=== PATIENT | male | born 1950 | race Caucasian/White ===

== ENCOUNTER → 2016-02-15 | Day surgery (SDC) | payer MEDICARE, MEDICAID ==
[~2016-02-15] VITALS: Ht 175.3 cm; Wt 122.5 kg
[~2016-02-15] MED LIST: /ACETCOD2T PO; /LOR25TA PO; ALBU17IN2 INH; ASPI325T PO; ATEN100T PO; ATOR1TAB18 PO; Albuterol HFA INH; BUPIVACAINE HCL 0.25% 30 ML VIAL As Ordered ONE; CITA40TA PO; CYMB1CAP PO; DULO1CAP2 PO; FURO1TAB15 PO; FURO40TA2 PO; GLYCOPYRROLATE INJ 0.2 MG/ML 2 ML VIAL As Ordered ONE; HYDR-3716 PO; LIDOCAINE 2% INJ 100 MG/5 ML SDV (FOR ANES.) As Ordered ONE; LIPI80TA PO; LR 1,000 ML IV SCH; MEPERIDINE INJ 25 MG/ML VIAL (J2175) IV PRN; METOCLOPRAMIDE INJ 10MG/2ML VIAL (J2765) IV PRN; MIDAZOLAM INJ 2 MG/2 ML VIAL (J2250) As Ordered ONE; MIRA33504 PO; NEOSTIGMINE 1MG/ML 5 ML SYRINGE (J2710) As Ordered ONE; NITR0.6S SL; NITR4TASL SL; NORCO, ANEXSIA 5/325MG TABLET (HYDROcodone/ACETAMINOPHEN) PO PRN; OMEP20CA3 PO; OMEP40CA2 PO; ONDANSETRON 4MG/2ML VIAL (J2405) As Ordered ONE; ONDANSETRON 4MG/2ML VIAL (J2405) IV PRN; PERC5TAB PO; PERCOCET 5MG/325MG TAB As Ordered ONE; PERCOCET PO; POTA10CA PO; POTA20PO4 PO; RAMI5CA PO; RAMI5CAP PO; ROCURONIUM BROMIDE 50 MG/5 ML VIAL As Ordered ONE; SPIR1CAP INH; SUCR1TA PO; TOPI200T4 PO; VITA400T15 PO; Vitamin D2 PO; ZOLP-189 PO; ZOLP10TA2 PO; fentaNYL 250 MCG/5 ML INJECTION (J3010) As Ordered ONE
[2016-02-15] MEDS: PERCOCET 5MG/325MG TAB PO PRN ×2 (16:15→16:40)
[2016-02-15 19:57] VITALS: BP 123/62
--- NOTE | 2016-02-17 06:38 | RO ---
DATE OF PROCEDURE: 02/15/2016 PREOPERATIVE DIAGNOSIS: Recurrent ventral incisional hernia. POSTOPERATIVE DIAGNOSIS: Recurrent ventral incisional hernia. PROCEDURE PERFORMED: Laparoscopic repair of recurrent ventral incisional hernia with 12 cm Parietex patch, reference # [id number]. SURGEON: Dr. Mayo Rendon ANESTHESIA: General. INDICATIONS FOR THE PROCEDURE: The patient is a 65-year-old man who had developed a small hernia at the site of a trocar from a previous cholecystectomy. Approximately 3 years ago, he had undergone a laparoscopic repair using PhysioMesh patch. He has subsequently noted a small bulge just above his prior incision. Examination confirmed a small hernia and he is now for a laparoscopic repair. OPERATIVE PROCEDURE: The patient was placed supine on the operating table. He was placed under general endotracheal anesthesia. The patient's abdomen was prepped and draped in a sterile fashion. 0.25% Marcaine was infiltrated at a point in the right lateral abdomen at the level of the umbilicus. A short incision was made and a Veress needle was inserted in the abdomen was inflated with carbon dioxide gas. A 5 mm port was placed over the scope and this was advanced through the abdominal wall without difficulty. Initial examination showed some fairly extensive adhesions of the omentum to the anterior abdominal wall beneath his previous hernia scar which was just above the umbilicus. The abdomen was otherwise devoid of adhesions. I did note that a portion of the transverse colon was being elevated by the attachments of the attached omentum to the anterior abdominal wall, but the bowel itself did not appear to come in contact with the abdominal wall. The new hernia was not at this point identified. A second 5 mm trocar was placed in the right upper quadrant. Using the harmonic scalpel, the adhesions of the omentum to the anterior abdominal wall were lysed. In several areas, it appeared that there were portions of the previously placed mesh that were more adherent to the omentum than to the abdominal wall and that these were elevated away from the abdominal wall using the harmonic scalpel. Dissection proceeded from the right side across the midline to remove all of the adhesions from the anterior abdominal wall. Once the adhesions had all been completely freed, the new hernia defect was identified just above the level of the adhesions. There were a few fragments of the previously placed mesh adherent to the abdominal wall just inferior to this hernia defect. There was no evidence of recurrence at the previous hernia site. The new defect appeared to be approximately 1-1/2 to 2 cm in size. This was fairly close to the falciform ligament. Therefore, the harmonic scalpel was used to peel the falciform ligament and the preperitoneal fat in this area off of the anterior abdominal wall down to the underlying fascia to allow any new mesh to adhere more directly. Once this area had been cleared at least an additional 5-7 cm superiorly, the abdomen was deflated and the scope was removed. A small incision was made through the upper aspect of his old scar extending up over the new palpable hernia. The incision was deepened into the subcutaneous tissues. A hernia sac approximately 4 cm in size was identified and this was dissected free from surrounding subcutaneous fat. It was transected at the fascial level and removed and sent as a specimen. The fascial defect was approximately 1-1/2 cm in size. The subcutaneous tissues were elevated off of the fascia for 1-2 cm on all sides of this defect. I selected a 12 cm round Parietex patch to place over this defect. This was to provide a broad overlap on all sides and also to extend down over his previous repair to provide some reinforcement of an area that had previously been patched. The patch was first hydrated. Single #0 Ethibond suture was then placed. A bite of the inferior edge of the fascial defect was taken followed by a small bite in the center of the new piece of mesh followed by a bite of the superior edge of the fascial defect. The mesh was then folded and inserted into the abdomen. The Ethibond suture was then tied down, fixing the center of the mesh over the fascial closure. Two additional #0 Ethibond sutures were placed to complete the closure of the hernia defect. The abdomen was then reinflated. A SecureStrap tacking device was inserted. The abdominal pressure was decreased to 10 mmHg. Initially, the left side of the mesh was tacked down to the anterior abdominal wall. Once the left side was fairly well-fixed, the right side was also tacked in place. The first 25 tack route driver was used to tack down the edges of the mesh and hold it securely in place. A second tacker of 25 tacks was then used to fix the mesh more securely through the central portions and around the periphery. There was a small amount of bleeding, but this ceased spontaneously. Final inspection revealed no evidence of bleeding. The mesh appeared to be well applied. The abdomen was then deflated and the remaining trocars were removed. The trocar site incisions were closed with buried #5-0 Vicryl. The midline incision was infiltrated with some additional 0.25% Marcaine. The subcutaneous tissues were closed with several buried sutures of #0 Vicryl. The skin edges were approximated with a running subcuticular #5-0 Vicryl and Steri-Strips. Light dressings were applied. The patient tolerated the procedure well without apparent complication. He was awakened in the operating room, extubated and moved to the recovery room in stable condition.
== END | disposition home or self-care (01) ==
LOC: M SDC 13:02
PROVIDERS: ATTEND Surgery
DX: K43.2 Incisional hernia without obstruction or gangrene (principal); K43.9 Ventral hernia without obstruction or gangrene; I10 Essential (primary) hypertension; E78.00 Pure hypercholesterolemia, unspecified; G47.33 Obstructive sleep apnea (adult) (pediatric); I25.10 Atherosclerotic heart disease of native coronary artery without angina pectoris; K44.9 Diaphragmatic hernia without obstruction or gangrene; K21.9 Gastro-esophageal reflux disease without esophagitis; R29.898 Other symptoms and signs involving the musculoskeletal system; R06.83 Snoring; M12.9 Arthropathy, unspecified; M54.2 Cervicalgia; F41.9 Anxiety disorder, unspecified; F32.9 Major depressive disorder, single episode, unspecified; R51 Headache; J44.9 Chronic obstructive pulmonary disease, unspecified; E11.9 Type 2 diabetes mellitus without complications; E66.9 Obesity, unspecified; E78.5 Hyperlipidemia, unspecified; R10.9 Unspecified abdominal pain; E55.9 Vitamin D deficiency, unspecified; N52.9 Male erectile dysfunction, unspecified; R25.1 Tremor, unspecified; Z88.1 Allergy status to other antibiotic agents; Z87.891 Personal history of nicotine dependence; Z79.899 Other long term (current) drug therapy; Z79.82 Long term (current) use of aspirin; Z95.5 Presence of coronary angioplasty implant and graft
CPT/HCPCS: 49654; 88302; C1781; J2250; J2405; J2710; J3010

== ENCOUNTER → 2016-03-16 | Outpatient (CLI) | payer MEDICARE, MEDICAID ==
[~2016-03-16] MED LIST changes: -BUPIVACAINE HCL 0.25% 30 ML VIAL As Ordered ONE; -GLYCOPYRROLATE INJ 0.2 MG/ML 2 ML VIAL As Ordered ONE; -LIDOCAINE 2% INJ 100 MG/5 ML SDV (FOR ANES.) As Ordered ONE; -LR 1,000 ML IV SCH; -MEPERIDINE INJ 25 MG/ML VIAL (J2175) IV PRN; -METOCLOPRAMIDE INJ 10MG/2ML VIAL (J2765) IV PRN; -MIDAZOLAM INJ 2 MG/2 ML VIAL (J2250) As Ordered ONE; -NEOSTIGMINE 1MG/ML 5 ML SYRINGE (J2710) As Ordered ONE; -NORCO, ANEXSIA 5/325MG TABLET (HYDROcodone/ACETAMINOPHEN) PO PRN; -ONDANSETRON 4MG/2ML VIAL (J2405) As Ordered ONE; -ONDANSETRON 4MG/2ML VIAL (J2405) IV PRN; -PERCOCET 5MG/325MG TAB As Ordered ONE; -ROCURONIUM BROMIDE 50 MG/5 ML VIAL As Ordered ONE; -fentaNYL 250 MCG/5 ML INJECTION (J3010) As Ordered ONE
--- NOTE | 2016-03-16 15:33 | REP ---
Low-dose lung cancer screening chest CT without contrast: History: Lung cancer screening. Comparison chest CT study is from August 05, 2015 done at [facility]. The patient had a spiculated lesion in the right middle lobe. In September 2015 he underwent wedge resection of the right middle lobe. 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 CT findings: There are postoperative changes in the right hemithorax. There is a stable oval shaped noncalcified pulmonary nodule 7 mm in diameter in the left lung lingular distribution, unchanged from comparison study August 05, 2015. This is a stable finding from July 25, 2013 prior study. No other pulmonary nodule is seen. There are old ununited upper thoracic rib fractures and old post-traumatic changes are seen anteriorly in the chest bilaterally. Impression: No significant pulmonary nodule seen. Post thoracotomy changes. Signed by Sridhar Frnaklin MD 03/16/2016 04:34 P
== END ==
LOC: M RAD 14:45
PROVIDERS: ATTEND Physician Assistant Medical
DX: Z87.891 Personal history of nicotine dependence (principal)

== ENCOUNTER → 2016-03-28 | Outpatient (CLI) | payer MEDICARE, MEDICAID ==
[~2016-03-28] MED LIST changes: +GASTROGRAFIN SOLUTION 30ML (Q9963) As Ordered ONE; +ISOVUE-370 76% 100ML VIAL (Q9967) As Ordered ONE
--- NOTE | 2016-03-28 15:08 | REP ---
Clinical: Left lower quadrant pain. Technique: Axial contrast enhanced images from the lung bases to the pubic symphysis using oral and 100 ml Isovue 370 intravenous contrast material precontrast images of the abdomen and coronal/sagittal re-formations. Comparison: 06/02/2015, 03/08/2013. Findings: The lung singh clear. Visualized portions of the heart and pericardium normal. Liver, spleen, and bilateral adrenal glands are normal. Pancreatic calcifications consistent with chronic pancreatitis. Evidence for prior cholecystectomy. Kidneys demonstrate bilateral cysts measuring 3.5 cm on the right and 5.8 cm on the left. 2 mm nonobstructing left renal calculus identified without hydronephrosis. The enteric system is without obstruction or acute inflammatory process. Pelvis demonstrates normal bladder and age appropriate prostate/seminal vesicles. No pelvic fluid or ascites. No intraperitoneal or retroperitoneal adenopathy. No free air. Atherosclerotic changes to the aorta and vasculature without aneurysm or dissection. Musculoskeletal structures demonstrate degenerative changes without focal osseous abnormality. Impression: 1. Evidence of prior cholecystectomy and chronic pancreatitis. 2. 2 mm nonobstructing left renal calculus and bilateral simple cysts measuring up to 5.8 cm. 3. No free fluid. No acute intra-abdominal or pelvic pathology appreciated. Signed by Roney Pederson MD 03/28/2016 02:59 P
== END ==
LOC: M RAD 12:27
PROVIDERS: ATTEND Internal Medicine Gastroenterology
DX: R10.32 Left lower quadrant pain (principal); K59.00 Constipation, unspecified
CPT/HCPCS: 74178; Q9963; Q9967

== ENCOUNTER → 2016-03-31 | Outpatient (CLI) | payer MEDICARE, MEDICAID ==
[~2016-03-31] MED LIST changes: -GASTROGRAFIN SOLUTION 30ML (Q9963) As Ordered ONE; -ISOVUE-370 76% 100ML VIAL (Q9967) As Ordered ONE
[2016-03-31 14:41] LABS: BLOOD UREA NITROGEN 12 MG/DL (7-18); CREATININE FOR GFR 1.01 MG/DL (0.70-1.30); GLOMERULAR FILTRATION RATE > 60.0 (>49)
== END ==
LOC: M LAB 13:39
PROVIDERS: ATTEND Internal Medicine Gastroenterology
DX: K57.32 Diverticulitis of large intestine without perforation or abscess without bleeding (principal)

== ENCOUNTER → 2016-05-23 | Outpatient (CLI) | payer MEDICARE, MEDICAID ==
[2016-05-23 18:04] LABS: ALBUMIN 3.7 GM/DL (3.2-5.2); ALBUMIN/GLOBULIN RATIO 1.09 (1.00-1.93); ALKALINE PHOSPHATASE 133 U/L (45-117); ALT/SGPT 23 U/L (12-78); ANION GAP 7 MEQ/L (8-16); AST/SGOT 15 U/L (15-37); BILIRUBIN,TOTAL 0.6 MG/DL (0.2-1.0); BLOOD UREA NITROGEN 15 MG/DL (7-18); CALCIUM LEVEL 8.7 MG/DL (8.8-10.2); CARBON DIOXIDE LEVEL 30 MEQ/L (21-32); CHLORIDE LEVEL 105 MEQ/L (98-107); CHOLESTEROL LEVEL 167 MG/DL (<200); CREATININE FOR GFR 0.92 MG/DL (0.70-1.30); GLOMERULAR FILTRATION RATE > 60.0 (>49); GLUCOSE, FASTING 115 MG/DL (80-110); SODIUM LEVEL 142 MEQ/L (136-145); TOTAL PROTEIN 7.1 GM/DL (6.4-8.2); TRIGLYCERIDES LEVEL 157 MG/DL (<150)
== END ==
LOC: M LAB 15:36
PROVIDERS: ATTEND Emergency Medicine
DX: I10 Essential (primary) hypertension (principal); E11.9 Type 2 diabetes mellitus without complications; E55.9 Vitamin D deficiency, unspecified; E78.2 Mixed hyperlipidemia

== ENCOUNTER 2016-08-06 21:18 | Emergency (ER) | payer MEDICARE, MEDICAID ==
[~2016-08-06] VITALS: Ht 175.3 cm; Wt 119.0 kg
[~2016-08-06 21:18] MED LIST changes: -ATOR1TAB18 PO; +ATOR80TA59 PO; -FURO1TAB15 PO; +FURO80TA2 PO; -TOPI200T4 PO; +TOPI200T7 PO
[2016-08-06] MEDS ORDERED: VITA100066 PO (21:37)
[2016-08-06] MEDS ORDERED: IBUPROFEN 600 MG TAB PO ONE (22:45)
--- NOTE | 2016-08-06 23:40 | REPUSA ---
Clinical history: ppalpable mass in the right flank region. Findings: Real-time ultrasound imaging of the right flank region of the abdomen was performed. At t he site of concern, there is a well circumscribed loculatedcomplex fluid collection posterior to the written anterior to the liver, measuring 8.0 x 1.8 x 9.8 cm. No infiltrative changes are noted. No ev idence of calcifications are appreciated. No other gross abnormalities. Incidental note of a simple r ight renal cyst is seen. Impression: Slightly complex cystic appearing lesion in the deep soft tissues in the right flank dawson on at the site of concern. Differential diagnosis includes hematoma versus abscess. Follow-up is [facility] as clinically indicated.
[2016-08-06] MEDS ORDERED: NORCOTAB PO (23:47)
[2016-08-06 23:55] VITALS: BP 125/82
== END 2016-08-06 23:57 | disposition home or self-care (01) ==
LOC: M ED 21:18
DX: R22.2 Localized swelling, mass and lump, trunk (principal); I10 Essential (primary) hypertension; F17.210 Nicotine dependence, cigarettes, uncomplicated

== ENCOUNTER 2017-03-09 17:39 | Emergency (ER) | payer MEDICARE, MEDICAID ==
[2017-03-09] MEDS: IPRATROPIUM 0.5MG/ALBUTEROL 2.5MG INH SOL UD 3ML (DUONEB)(J7620) NEB (19:40)
[2017-03-09] MEDS: methylPREDNISolone INJ 125 MG/2 ML VIAL (J2930) IV (19:57)
[2017-03-09] MEDS: NS 500 ML IV (19:57)
[2017-03-09 20:03] LABS: BASO # 0.1 10^3/uL (0.0-0.2); BASO % 0.5 % (0.0-1.0); EOS # 0.1 10^3/uL (0.0-0.50); EOS % 1.3 % (0.0-3.0); HEMATOCRIT 47.9 % (42.0-52.0); HEMOGLOBIN 16.4 g/dl (14.0-18.0); IMMATURE GRANULOCYTE % 0.3 % (0-0); LYMPH # 1.6 10^3/uL (1.5-4.5); LYMPH % 17.2 % (24.0-44.0); MEAN CORPUSCULAR HEMOGLOBIN 31.8 pg (27.0-33.0); MEAN CORPUSCULAR HGB CONC 34.2 g/dl (32.0-36.5); MONO # 1.3 10^3/uL (0.0-0.8); MONO % 14.4 % (0.0-5.0); NEUTROPHILS # 6.1 10^3/uL (1.8-7.7); NEUTROPHILS % 66.3 % (36.0-66.0); PLATELET COUNT, AUTOMATED 200 10^3/uL (150-450); RED BLOOD COUNT 5.15 10^6/uL (4.30-6.10); RED CELL DISTRIBUTION WIDTH 12.9 % (11.5-14.5); WHITE BLOOD COUNT 9.3 10^3/uL (4.0-10.0)
[2017-03-09 20:09] LABS: ABG BASE EXCESS -1.9 (-2.0-2.0); ABG HCO3 22.1 MEQ/L (22.0-26.0); ABG O2 SATURATION 93.6 % (95.0-99.0); ABG PARTIAL PRESSURE CO2 35.9 mmHg (35.0-45.0); ABG PARTIAL PRESSURE O2 64.9 mmHg (75.0-100.0); ABG STANDARD HCO3 22.8 MEQ/L (22.0-26.0); ABG TOTAL CO2 23.2 MEQ/L (23.0-31.0); ABG pH (ARTERIAL) 7.407 UNITS (7.350-7.450)
[2017-03-09] MEDS: ACETAMINOPHEN 325 MG TAB PO (20:17)
[2017-03-09 20:35] LABS: INFLUENZA A AMPLIFICATION NEGATIVE (NEGATIVE); INFLUENZA B AMPLIFICATION NEGATIVE (NEGATIVE)
[2017-03-09 20:47] LABS: ALBUMIN 3.8 GM/DL (3.2-5.2); ALBUMIN/GLOBULIN RATIO 0.97 (1.00-1.93); ALKALINE PHOSPHATASE 102 U/L (45-117); ALT/SGPT 33 U/L (12-78); ANION GAP 7 MEQ/L (8-16); AST/SGOT 23 U/L (7-37); BILIRUBIN,DIRECT 0.2 MG/DL (0.0-0.2); BLOOD UREA NITROGEN 10 MG/DL (7-18); CARBON DIOXIDE LEVEL 27 MEQ/L (21-32); CHLORIDE LEVEL 105 MEQ/L (98-107); CREATININE FOR GFR 0.83 MG/DL (0.70-1.30); GLOMERULAR FILTRATION RATE > 60.0 (>49); GLUCOSE, FASTING 98 MG/DL (70-100); POTASSIUM SERUM 3.7 MEQ/L (3.5-5.1); SODIUM LEVEL 139 MEQ/L (136-145); TOTAL PROTEIN 7.7 GM/DL (6.4-8.2)
[2017-03-09 21:02] LABS: LACTIC ACID SEPSIS PROTOCOL 1.1 MMOL/L (0.4-2.0)
[2017-03-09] MEDS: AUGMENTIN 875 MG TAB PO (21:15)
== END 2017-03-09 21:26 | disposition home or self-care (01) ==
LOC: M ED 17:39
DX: J44.1 Chronic obstructive pulmonary disease with (acute) exacerbation (principal); J06.9 Acute upper respiratory infection, unspecified; I10 Essential (primary) hypertension; E78.00 Pure hypercholesterolemia, unspecified; K21.9 Gastro-esophageal reflux disease without esophagitis; G47.30 Sleep apnea, unspecified; F41.9 Anxiety disorder, unspecified; F33.9 Major depressive disorder, recurrent, unspecified; Z99.89 Dependence on other enabling machines and devices; Z79.899 Other long term (current) drug therapy; Z79.82 Long term (current) use of aspirin; Z88.1 Allergy status to other antibiotic agents; Z88.8 Allergy status to other drugs, medicaments and biological substances; Z87.891 Personal history of nicotine dependence
CPT/HCPCS: J2930

== ENCOUNTER → 2017-03-21 | Outpatient (CLI) | payer MEDICARE, MEDICAID ==
[~2017-03-21] MED LIST changes: -/ACETCOD2T PO; -/LOR25TA PO; -ALBU17IN2 INH; -ASPI325T PO; -ATEN100T PO; -ATOR80TA59 PO; -Albuterol HFA INH; -CITA40TA PO; -CYMB1CAP PO; -DULO1CAP2 PO; -FURO40TA2 PO; -FURO80TA2 PO; +GASTROGRAFIN SOLUTION 30ML (Q9963) As Ordered; -HYDR-3716 PO; +ISOVUE-370 76% 100ML VIAL (Q9967) As Ordered; -LIPI80TA PO; -MIRA33504 PO; -NITR0.6S SL; -NITR4TASL SL; -OMEP20CA3 PO; -OMEP40CA2 PO; -PERC5TAB PO; -PERCOCET PO; -POTA10CA PO; -POTA20PO4 PO; -RAMI5CA PO; -RAMI5CAP PO; -SPIR1CAP INH; -SUCR1TA PO; -TOPI200T7 PO; -VITA400T15 PO; -Vitamin D2 PO; -ZOLP-189 PO; -ZOLP10TA2 PO
== END ==
LOC: M RAD 13:28
DX: N28.1 Cyst of kidney, acquired (principal)
CPT/HCPCS: Q9963

== ENCOUNTER 2018-06-04 13:45 | Day surgery (SDC) | payer MEDICARE, MEDICAID ==
[~2018-06-04] VITALS: Ht 175.3 cm; Wt 123.3 kg
[~2018-06-04 13:45] MED LIST changes: +/LOR25TA PO; +ACET1TAB15 PO; +ACET500T15 PO; +ALBU17IN2 INH; +ASPI-1 PO; +ASPI325T PO; +ATEN100T PO; +ATOR80TA59 PO; +AUGM875T28 PO; +Albuterol HFA INH; +BENZ200C70 PO; +CITA40TA PO; +CYMB1CAP PO; +DULO1CAP2 PO; +FURO40TA2 PO; +FURO80TA2 PO; -GASTROGRAFIN SOLUTION 30ML (Q9963) As Ordered; +HYDR-3715 PO; +HYDR-3716 PO; -ISOVUE-370 76% 100ML VIAL (Q9967) As Ordered; +KLOR10TA76 PO; +LACT10SO29 PO; +LIPI80TA PO; +MIRA33504 PO; +NITR0.6S SL; +NITR4TASL SL; +OMEP20CA3 PO; +OMEP40CA2 PO; +PERC5TAB PO; +PERCOCET PO; +POTA20PO4 PO; +PRED10TA2 PO; +RAMI1CAP24 PO; +RAMI5CAP PO; +SPIR1CAP INH; +SUCR1TA PO; +TOPI200T7 PO; +VITA100066 PO; +VITA400T15 PO; +Vitamin D2 PO; +ZOLP-189 PO; +ZOLP10TA2 PO
[2018-06-04] MEDS ORDERED: NS 1,000 ML IV ONE (15:00)
[2018-06-04] MEDS ORDERED: LIDOCAINE 2% INJ 100 MG/5 ML SDV (FOR ANES.) As Ordered ONE (15:41)
[2018-06-04] MEDS ORDERED: PROPOFOL 200 MG/20 ML VIAL As Ordered ONE ×2 (15:41→16:13)
--- NOTE | 2018-06-04 16:03 | ROOR ---
Patient Name: Cheko Jaquez Procedure Date: 06/04/2018 3:37 PM Date of : 1950 Age: 68 Room: [facility] Gender: Male Note Status: Finalized Procedure: Upper GI endoscopy Indications: Generalized abdominal pain, Chronic Pancreatitis Providers: Diego ALONSO MD Referring MD: JENNY Triplett Requesting Provider: Medicines: Monitored Anesthesia Care Complications: No immediate complications. Procedure: Pre-Anesthesia Assessment: - The heart rate, respiratory rate, oxygen saturations, blood pressure, adequacy of pulmonary ventilation, and response to care were monitored throughout the procedure. The Endoscope was introduced through the mouth, and advanced to the second part of duodenum. The upper GI endoscopy was accomplished without difficulty. The patient tolerated the procedure well. Findings: The esophagus was normal. The stomach was normal. The examined duodenum was normal. Impression: - Normal esophagus. - Normal stomach. - Normal examined duodenum. - No specimens collected. Recommendation: - Low fat diet. - Observe patient's clinical course. Diego Alonso MD Diego ALONSO MD 06/04/2018 4:03:25 PM Electronically signed by Diego ALONSO MD Number of Addenda: 0 Note Initiated On: 06/04/2018 3:37 PM Estimated Blood Loss: Estimated blood loss: none.
--- NOTE | 2018-06-04 16:24 | ROOR ---
Patient Name: Cheko Jaquez Procedure Date: 06/04/2018 3:38 PM Date of : 1950 Age: 68 Room: [facility] Gender: Male Note Status: Finalized Procedure: Colonoscopy Indications: Generalized abdominal pain, Constipation Providers: Diego ALONSO MD Referring MD: JENNY Triplett Requesting Provider: Medicines: Monitored Anesthesia Care Complications: No immediate complications. Procedure: Pre-Anesthesia Assessment: - The heart rate, respiratory rate, oxygen saturations, blood pressure, adequacy of pulmonary ventilation, and response to care were monitored throughout the procedure. The Colonoscope was introduced through the anus and advanced to the terminal ileum, with identification of the appendiceal orifice and IC valve. The colonoscopy was performed without difficulty. The patient tolerated the procedure well. The quality of the bowel preparation was adequate and fair. Findings: The perianal and digital rectal examinations were normal. Three sessile polyps were found in the splenic flexure and ascending colon. The polyps were diminutive in size. These polyps were removed with a cold snare. Resection and retrieval were complete. Multiple medium-mouthed diverticula were found in the sigmoid colon. The exam was otherwise without abnormality on direct and retroflexion views. Impression: - Preparation of the colon was fair. - Three diminutive polyps at the splenic flexure and in the ascending colon, removed with a cold snare. Resected and retrieved. - Diverticulosis in the sigmoid colon. - The examination was otherwise normal on direct and retroflexion views. Recommendation: - Repeat colonoscopy in 2 years because the bowel preparation was suboptimal. - Continue present medications. - Use Lactulose at 2 tbsp PO TID. Diego Alonso MD Diego ALONSO MD 06/04/2018 4:24:22 PM Electronically signed by Diego ALONSO MD Number of Addenda: 0 Note Initiated On: 06/04/2018 3:38 PM Estimated Blood Loss: Estimated blood loss: none.
[2018-06-04 16:54] VITALS: BP 157/95
== END 2018-06-04 17:22 | disposition home or self-care (01) ==
LOC: M OPP 13:45
PROVIDERS: ATTEND Internal Medicine Gastroenterology
DX: D12.2 Benign neoplasm of ascending colon (principal); D12.3 Benign neoplasm of transverse colon; K57.30 Diverticulosis of large intestine without perforation or abscess without bleeding; R10.84 Generalized abdominal pain; K59.00 Constipation, unspecified; K86.1 Other chronic pancreatitis

== ENCOUNTER 2019-01-09 22:37 | Emergency (ER) | payer MEDICARE, MEDICAID ==
[~2019-01-09] VITALS: Ht 175.3 cm; Wt 120.0 kg
[~2019-01-09 22:37] MED LIST changes: -DULO1CAP2 PO; +DULO1CAP5 PO; +OMEP-172 PO; -OMEP20CA3 PO; +PROV108A INH
[2019-01-10] MEDS ORDERED: KETOROLAC 60 MG/2 ML VIAL (J1885) IM ONE (00:15)
[2019-01-10] MEDS ORDERED: CYCL5TAB PO (00:23)
[2019-01-10 00:42] VITALS: BP 139/59
== END 2019-01-10 00:53 | disposition home or self-care (01) ==
LOC: M ED 22:37
DX: R10.30 Lower abdominal pain, unspecified (principal); G89.29 Other chronic pain; M54.5 Low back pain; E78.5 Hyperlipidemia, unspecified; I10 Essential (primary) hypertension; K21.9 Gastro-esophageal reflux disease without esophagitis; F32.9 Major depressive disorder, single episode, unspecified; F41.9 Anxiety disorder, unspecified; Z79.51 Long term (current) use of inhaled steroids; Z79.899 Other long term (current) drug therapy; Z88.1 Allergy status to other antibiotic agents; Z88.8 Allergy status to other drugs, medicaments and biological substances
CPT/HCPCS: 96372; 99283; J1885

== ENCOUNTER → 2019-02-18 | Outpatient (CLI) | payer MEDICARE, MEDICAID ==
[~2019-02-18] MED LIST changes: +CYCL5TAB PO; -OMEP-172 PO; +OMEP1CAP73 PO
[2019-02-18 18:49] LABS: BLOOD UREA NITROGEN 11 MG/DL (7-18); CALCIUM LEVEL 9.7 MG/DL (8.8-10.2); CARBON DIOXIDE LEVEL 29 MEQ/L (21-32); CHLORIDE LEVEL 106 MEQ/L (98-107); GLOMERULAR FILTRATION RATE > 60.0 (>49); GLUCOSE, FASTING 102 MG/DL (70-100); POTASSIUM SERUM 4.8 MEQ/L (3.5-5.1); SODIUM LEVEL 140 MEQ/L (136-145)
== END ==
LOC: M LAB 16:54
PROVIDERS: ATTEND Orthopaedic Surgery Hand Surgery
DX: Z79.899 Other long term (current) drug therapy (principal)

== ENCOUNTER 2019-04-01 17:05 | Inpatient (IN) | payer MEDICARE, MEDICAID ==
[~2019-04-01] VITALS: Ht 175.3 cm; Wt 117.6 kg
[2019-04-01] MEDS ORDERED: ONDANSETRON 4MG/2ML VIAL (J2405) IV ONE (19:00)
[2019-04-01] MEDS ORDERED: NS 1,000 ML IV ONE ×2 (19:00→21:00)
[2019-04-01 19:07] LABS: BASO % 0.3 % (0.0-1.0); EOS % 0.3 % (0.0-3.0); HEMATOCRIT 56.2 % (42.0-52.0); HEMOGLOBIN 19.5 g/dl (13.5-17.5); LYMPH # 1.8 10^3/uL (1.5-5.0); LYMPH % 15.6 % (24.0-44.0); MEAN CORPUSCULAR HEMOGLOBIN 31.7 pg (27.0-33.0); MEAN CORPUSCULAR HGB CONC 34.7 g/dl (32.0-36.5); MEAN CORPUSCULAR VOLUME 91.2 fl (80.0-96.0); MONO # 1.2 10^3/uL (0.0-0.8); MONO % 9.9 % (0.0-5.0); NEUTROPHILS # 8.6 10^3/uL (1.5-8.5); NEUTROPHILS % 73.5 % (36.0-66.0); PLATELET COUNT, AUTOMATED 273 10^3/uL (150-450); RED BLOOD COUNT 6.16 10^6/uL (4.30-6.10); WHITE BLOOD COUNT 11.6 10^3/uL (4.0-10.0)
[2019-04-01 19:29] LABS: ALBUMIN 4.4 GM/DL (3.2-5.2); BILIRUBIN,DIRECT 0.2 MG/DL (0.0-0.2); BILIRUBIN,TOTAL 1.1 MG/DL (0.2-1.0); CALCIUM LEVEL 10.5 MG/DL (8.8-10.2); CREATININE FOR GFR 2.21 MG/DL (0.70-1.30); GLOMERULAR FILTRATION RATE 31.9 (>49); POTASSIUM SERUM 4.3 MEQ/L (3.5-5.1); TOTAL PROTEIN 8.3 GM/DL (6.4-8.2)
[2019-04-01 19:31] LABS: INFLUENZA A AMPLIFICATION NEGATIVE (NEGATIVE); INFLUENZA B AMPLIFICATION NEGATIVE (NEGATIVE)
[2019-04-01] MEDS ORDERED: MORPHINE 4 MG/ML 1ML VIAL/SYRINGE (J2270) IV ONE (20:00)
[2019-04-01] MEDS ORDERED: OMEP-221 PO (20:14)
[2019-04-01] MEDS ORDERED: VITA400C53 PO (20:14)
[2019-04-01] MEDS ORDERED: TOPI50TA9 PO (20:14)
--- NOTE | 2019-04-01 20:47 | REPVR ---
PROCEDURE INFORMATION: Exam: CT Abdomen And Pelvis Without Contrast Exam date and time: 04/01/2019 7:58 PM Age: 68 years old Clinical indication: Abdominal pain; Generalized; Additional info: Abd pain with n/v/d R/O infectious process TECHNIQUE: Imaging protocol: Computed tomography of the abdomen and pelvis without contrast. Radiation optimization: All CT scans at this facility use at least one of these dose optimization techniques: automated exposure control; mA and/or kV adjustment per patient size (includes targeted exams where dose is matched to clinical indication); or iterative reconstruction. COMPARISON: CT ABD PELVIS W/O FOL BY WIT 03/21/2017 3:05 PM FINDINGS: Liver: Normal. No mass. Gallbladder and bile ducts: There has been prior cholecystectomy. No biliary duct dilation. Pancreas: Multiple calcifications in the pancreas. Mild pancreatic atrophy. No pancreatic mass or inflammatory changes. Spleen: Normal. No splenomegaly. Adrenals: Normal. No mass. Kidneys and ureters: Multiple cysts in both kidneys. Kidneys are otherwise unremarkable. No hydronephrosis. Stomach and bowel: There is mild colonic diverticulosis without evidence of diverticulitis. The small bowel is unremarkable. Appendix: There has been prior appendectomy. Intraperitoneal space: Unremarkable. No free air. No significant fluid collection. Vasculature: Unremarkable. No abdominal aortic aneurysm. Lymph nodes: Unremarkable. No enlarged lymph nodes. Bladder: Unremarkable as visualized. Reproductive: Unremarkable as visualized. Bones/joints: There are degenerative changes in the spine and pelvis. Soft tissues: Unremarkable. IMPRESSION: 1. Colonic diverticulosis without evidence of diverticulitis. 2. No acute inflammatory process or bowel obstruction. 3. Changes of chronic pancreatitis. No acute pancreatic inflammation or mass. Electronically signed by: Freddy Black On 04/01/2019 20:47:28 PM
[2019-04-01] MEDS: NS 1,000 ML IV SCH (21:30)
[2019-04-01] MEDS ORDERED: ACETAMINOPHEN TAB 650MG DOSE (2X325MG) PO PRN (22:15)
[2019-04-01] MEDS ORDERED: NITROGLYCERIN 0.4 MG SUBL TABLET SL PRN (22:15)
[2019-04-01] MEDS ORDERED: ALBUTEROL 90 MCG/ACT 8GM HFA INHALER INH PRN (22:15)
[2019-04-01] MEDS ORDERED: NS 500 ML IV ONE (23:00)
[2019-04-01] MEDS ORDERED: ONDANSETRON 4MG/2ML VIAL (J2405) IV PRN (23:30)
--- NOTE | 2019-04-01 23:36 | IPNPDOC ---
Text Note Date of Service The patient was seen on 04/01/19. NOTE TIME OF SERVICE: 10:15 PM Mr. Abraham is a 68-year-old male with a past medical history of MT, double bypass, chronic hypertension, and dyslipidemia who is admitted for management of YOVANY, likely due to viral gastroenteritis. 1. Acute Renal Failure Plan: Is/Os, daily weights / IVF / f/u ulytes for FENa or FEUrea / renal US Rest per 's note. VS,Fishbone, I+O VS, Fishbone, I+O Laboratory Tests 04/01/19 18:46 Vital Signs Date Time Temp Pulse Resp B/P (MAP) Pulse Ox O2 Delivery O2 Flow Rate FiO2 04/01/19 22:52 65 18 82/62 (69) 95 Room Air 04/01/19 17:05 98.0 JENNIFER CRAMER MD Apr 01, 2019 23:36
--- NOTE | 2019-04-01 23:42 | HPEPDOC ---
[facility] Medical History & Physical Date of Admission Apr 01, 2019 Date of Service: Apr 01, 2019 Attending Physician: JENNIFER CRAMER MD History and Physical CHIEF COMPLAINT: Nausea, vomiting, and diarrhea HISTORY OF PRESENT ILLNESS: Patient is a 68-year-old male presents to the emergency room with a 4 day history of nausea vomiting diarrhea. Patient states that 4 days ago he started having nausea and began vomiting. Patient states he vomited about 5 times per day up until earlier today. Patient states he only vomited once today. Patient's been having watery diarrhea. Patient denies having any blood in his diarrhea. Patient says he has not been able to eat and drink much over the last 4 days because of his nausea, vomiting, and diarrhea. Patient also endorses crampy abdominal pain last 4 days. Patient denies eating any abnormal foods. Patient had a tuna fish sandwich the day before he started feeling ill. Patient denies any fevers or any other complaints. Patient does not have any sick contacts. REVIEW OF SYSTEMS: General: Patient denies fevers, chills, night sweats, unintentional weight loss HEENT: Patient denies headaches, changes in vision, sore throat. Cardiovascular: Patient denies chest pain, chest pressure, or palpitations Respiratory: Patient denies shortness of breath, cough GI: Patient endorses abdominal pain, nausea, vomiting, diarrhea as above : Patient denies pain or difficulty with urination Neurological: Patient denies numbness or tingling in extremities Extremities: Patient denies swelling or pain in extremities Skin: Patient denies any rashes or lesions. Hematologic: Patient denies any easy bruising. Lymphatic: Patient denies any lumps in his neck, axilla, or groin. PAST MEDICAL HISTORY: 1. Hypertension. 2. Hyperlipidemia 3. Coronary artery disease. PAST SURGICAL HISTORY: 1. Hernia repair. 2. Cholecystectomy. 3. And appendectomy 4. Thumb surgery 5. Resection of lung 6. Coronary artery bypass surgery in 2004 7. Removal of sternum due to infection after bypass surgery SOCIAL HISTORY: Patient just recently quit smoking. Patient says he's smoked on and off throughout his life but has been smoking for the last 6 years prior to quitting 3 weeks ago. Patient denies any alcohol use. Patient denies any drug use. Patient is disabled from work. Patient lives alone in an apartment [place]. FAMILY HISTORY: Patient's father from kidney failure. Patient's mother of cancer. Patient does not know more about the rest of his family history. ALLERGIES: Please see below. HOME MEDICATIONS: Please see below. PHYSICAL EXAMINATION: VITAL SIGNS: Temperature 98.0, pulse 94, respiratory rate 20, blood pressure 102/77, pulse oximetry 97% on room air. General: Alert and oriented male patient who was sitting on the stretcher in the emergency room and I walked him. Patient does not appear to be in any acute distress. HEENT: Normocephalic, atraumatic, moist mucous membranes, posterior pharynx was nonerythematous. Neck: No lymphadenopathy, thyromegaly, or carotid bruits. Cardiac: Regular rate and rhythm, no murmurs, normal S1, normal S2 Pulm: Clear to auscultation bilaterally. No wheezes, rhonchi, rales Abd: Mild tenderness to palpation of the abdomen. Abdomen was soft and nondistended. There is no guarding, rigidity, or rebound tenderness. No CVA tenderness Ext: No edema bilateral lower extremities Neuro: No gross neurological deficits. Patient was able to follow commands Skin: Skin of the arms, lower legs, abdomen, back, head and neck were examined did not show any evidence of rash or lesions. LABORATORY DATA: See below. IMAGING: A CT scan of the abdomen and pelvis without contrast was reported to show colonic diverticulosis without evidence of diverticulitis, no acute inflammatory processes about depression, changes of chronic pancreatitis. No acute pancreatic inflammation or mass. MICROBIOLOGY: Please see below. ASSESSMENT: Patient is a 68-year-old male presented to the hospital with a 4-5 day history of nausea, vomiting, and diarrhea was found to have an acute kidney injury on laboratory studies. PLAN: 1. Gastroenteritis. Patient has not vomited today however, we will continue with Zofran. A GI panel has been ordered to rule out infectious causes. We will continue with IV fluid hydration and advance the patient's diet as tolerated. Patient will start with a Brat diet. 2. Acute kidney injury patient's creatinine was 2.21. Patient's baseline creatinine is normal. This is most likely prerenal due to dehydration. We'll continue to monitor the patient. Patient has received 2.5 L bolused IV fluids. Patient is on a rate of 120 mL per hour. We'll have to continue to monitor the patient as he does take Lasix on a daily basis as to not fluid overload him. Patient's furosemide and ramipril have been held. UA has been ordered and is pending. 3. Hypotension. Patient's blood pressure was 82/62 after I saw the patient. Patient was given additional 500 mL bolus fluids. We will continue to monitor t he patient. Patient's blood pressure medication is on hold. Patient did receive a dose of IV morphine but this was at 8 PM about 3 and half hours prior to the hypotension. 4. Coronary artery disease. Continue the patient's home atenolol, atorvastatin, and nitroglycerin as needed. 5. Hyperlipidemia. Continue patient's atorvastatin. 6. Obesity. Complicates care 7. DVT prophylaxis: Heparin 5000 units every 8 hours. 8. CODE STATUS: Full code Patient will be admitted to medical surgical floor with continue IV fluid hydration. Labs been ordered to follow resolution of acute kidney injury. Vital Signs Vital Signs Date Time Temp Pulse Resp B/P (MAP) Pulse Ox O2 Delivery O2 Flow Rate FiO2 04/01/19 22:52 65 18 82/62 (69) 95 Room Air 04/01/19 17:05 98.0 Laboratory Data Labs 24H Laboratory Tests 2 04/01/19 18:46: Immature Granulocyte % (Auto) 0.4, Neutrophils (%) (Auto) 73.5H, Lymphocytes (%) (Auto) 15.6L, Monocytes (%) (Auto) 9.9H, Eosinophils (%) (Auto) 0.3, Basophils (%) (Auto) 0.3, Neutrophils # (Auto) 8.6H, Lymphocytes # (Auto) 1.8, Monocytes # (Auto) 1.2H, Eosinophils # (Auto) 0.0, Basophils # (Auto) 0.0, Nucleated Red Blood Cells % (auto) 0.0, Anion Gap 12, Glomerular Filtration Rate 31.9L, Calcium Level 10.5H, Total Bilirubin 1.1H, Direct Bilirubin 0.2, Aspartate Amino Transf (AST/SGOT) 39H, Alanine Aminotransferase (ALT/SGPT) 43, Alkaline Phosphatase 123H, Total Protein 8.3H, Albumin 4.4, Albumin/Globulin Ratio 1.13, Lipase 138, Influenza Type A (RT-PCR) NEGATIVE, Influenza Type B (RT-PCR) NEGATIVE CBC/BMP Laboratory Tests 04/01/19 18:46 Home Medications Scheduled Atenolol (Atenolol) 100 Mg Tab, 100 MG PO DAILY Atorvastatin Calcium (Atorvastatin Calcium) 80 Mg Tab, 80 MG PO QHS Duloxetine Hcl (Duloxetine HCl) 30 Mg Cap, 30 MG PO DAILY Furosemide (Furosemide) 80 Mg Tab, 80 MG PO DAILY Omeprazole (Omeprazole) 40 Mg Capsule.dr, 40 MG PO DAILY Potassium Chloride (Klor-Con M10) 10 Meq Tabcr, 10 MEQ PO DAILY Ramipril (Ramipril) 5 Mg Cap, 5 MG PO DAILY Topiramate (Topiramate) 50 Mg Tablet, 50 MG PO QHS Vitamin E (Vitamin E) 400 Unit Capsule, 400 UNIT PO DAILY Scheduled PRN Acetaminophen (Acetaminophen) 500 Mg Tab, 1,000 MG PO Q6H PRN for PAIN Albuterol Sulfate (Proventil Hfa) 108 Mcg/Act Aer, 2 PUFF INH QID PRN for SOB/WHEEZING Nitroglycerin (Nitrostat) 0.4 Mg Subl, 0.4 MG SL PRN PRN for CHEST PAIN Allergies Coded Allergies: citalopram (Verified Allergy, Intermediate, rash, 05/28/18) clindamycin (Verified Allergy, Intermediate, rash, 05/28/18) A-FIB/CHADSVASC A-FIB History Current/History of A-Fib/PAF?: No GME ATTESTATION GME ATTESTATION My faculty preceptor for this patient encounter was physically present during the encounter and was fully available. All aspects of the patient interview, examination, medical decision making process, and medical care plan development were reviewed and approved by the faculty preceptor. The faculty preceptor is aware and concurs with the plan as stated in the body of this note and will attest to such by his/her cosignature. ATTENDING NOTE I reviewed and edited 's note and agree with the findings as documented. BEBA NAVARRO DO Apr 01, 2019 23:42 JENNIFER CRAMER MD Apr 02, 2019 01:49
[2019-04-02] VITALS (7 sets, daily range): BP systolic 93–101; BP diastolic 51–57
[2019-04-02] MEDS: ATORVASTATIN 20 MG TAB PO SCH ×2 (00:44→21:43)
[2019-04-02] MEDS: NS 1,000 ML IV SCH (00:45)
[2019-04-02] MEDS: TOPIRAMATE (TopAMAX) 25 MG TAB PO SCH ×2 (00:45→21:43)
--- NOTE | 2019-04-02 04:27 | REPVR ---
PROCEDURE INFORMATION: Exam: US Retroperitoneal Limited, Kidneys Exam date and time: 04/02/2019 3:08 AM Age: 68 years old Clinical indication: Abnormal findings; Abnormal lab test; Abnormal kidney function lab tests; Additional info: Luis A TECHNIQUE: Imaging protocol: Real-time ultrasound of the retroperitoneum with image documentation. Examination was focused on the kidneys. COMPARISON: Abdomen, limited US 08/06/2016 10:58 PM FINDINGS: Right kidney: Right kidney measures 13.4 cm. Right kidney is mildly echogenic. There is a 3.3 cm cyst in the lower pole of the right kidney. No hydronephrosis. Left kidney: Left kidney measures 14.1 cm. Left kidney has a lobulated contour with multiple cysts of varying size. Largest exophytic cyst of the left kidney measures 6.9 cm. No hydronephrosis. Bladder: Urinary bladder is unremarkable. IMPRESSION: 1. Multiple renal cysts. 2. No hydronephrosis. 3. Mildly echogenic right kidney suggesting chronic medical renal disease. Electronically signed by: Freddy Black On 04/02/2019 04:27:24 AM
[2019-04-02] MEDS: HEPARIN SOD (PORCINE) 5000 UNITS/ML VIAL (J1644 PER 1000UNITS) SC SCH ×3 (05:22→21:44)
[2019-04-02 07:27] LABS: HEMOGLOBIN 15.8 g/dl (13.5-17.5); MEAN CORPUSCULAR HEMOGLOBIN 32.5 pg (27.0-33.0); MEAN CORPUSCULAR HGB CONC 35.1 g/dl (32.0-36.5); MEAN CORPUSCULAR VOLUME 92.6 fl (80.0-96.0); PLATELET COUNT, AUTOMATED 195 10^3/uL (150-450); RED BLOOD COUNT 4.86 10^6/uL (4.30-6.10); WHITE BLOOD COUNT 10.9 10^3/uL (4.0-10.0)
[2019-04-02 07:57] LABS: ALBUMIN 3.1 GM/DL (3.2-5.2); BILIRUBIN,TOTAL 0.9 MG/DL (0.2-1.0); CALCIUM LEVEL 8.1 MG/DL (8.8-10.2); CREATININE FOR GFR 1.88 MG/DL (0.70-1.30); GLOMERULAR FILTRATION RATE 38.4 (>49); POTASSIUM SERUM 3.3 MEQ/L (3.5-5.1); TOTAL PROTEIN 5.8 GM/DL (6.4-8.2)
[2019-04-02] MEDS ORDERED: PREVNAR 13 VACCINE SYRINGE (CPT CODE:90670) IM ONE (09:00)
[2019-04-02] MEDS ORDERED: POTASSIUM CHLORIDE 10 MEQ SR TABLET PO SCH (09:00)
[2019-04-02] MEDS ORDERED: POTASSIUM CHLORIDE 10 MEQ SR TABLET PO ONE (09:00)
[2019-04-02] MEDS ORDERED: atenoloL 50 MG TAB PO SCH ×2 (09:00→21:00)
[2019-04-02] MEDS ORDERED: FLUBLOK(EGG FREE)(QUAD)INFLUENZA VACC 0.5ML SYRINGE (90682)18YRS&OLDER IM ONE (09:00)
[2019-04-02] MEDS: OMEPRAZOLE 20 MG CAP PO SCH (09:34)
[2019-04-02] MEDS: DULoxetine 30 MG CAP (CYMBALTA) PO SCH (09:35)
[2019-04-02 10:32] LABS: APPEARANCE, URINE CLOUDY (CLEAR); BACTERIA, URINE AUTO NEGATIVE (NEGATIVE); BILIRUBIN, URINE AUTO NEGATIVE (NEGATIVE); BLOOD, URINE BLOOD NEGATIVE (NEGATIVE); COLOR, URINE YELLOW (YELLOW); GLUCOSE, URINE (UA) AUTO NEGATIVE (NEGATIVE); KETONE, URINE AUTO TRACE mg/dL (NEGATIVE); LEUKOCYTE ESTERASE, URINE AUTO NEGATIVE (NEGATIVE); MUCUS, URINE SMALL (NEGATIVE); NITRITE, URINE AUTO NEGATIVE (NEGATIVE); PROTEIN, URINE AUTO 2+ mg/dL (NEGATIVE); RBC, URINE AUTO 5 /HPF (0-3); SPECIFIC GRAVITY URINE AUTO 1.015 (1.002-1.035); SQUAMOUS EPITHELIAL CELL UR AU 0 /HPF (0-6); UROBILINOGEN, URINE AUTO 0.2 mg/dL (0.0-2.0); WBC, URINE AUTO 1 /HPF (0-3)
[2019-04-02 11:05] LABS: SODIUM,RANDOM URINE 23 MEQ/L; UREA NITROGEN RANDOM URINE 625 MG/DL
--- NOTE | 2019-04-02 14:21 | IPNPDOC ---
Subjective Date Seen The patient was seen on 04/02/19. Subjective Chief Complaint/HPI Mr. Lopez is a 68 year old male who was admitted to the hospital with a diagnosis of Gastroenteritis. Pt is seen sitting up in bed this morning. He reported he has not vomited or had diarrhea since his admission. He feels somewhat better, but is a little nauseous and weak still. He is keeping down fluids by mouth. No fever/chills overnight. Pt reported he had not urinated overnight, when seen he stated he had significant bladder relief just before breakfast. Objective Physical Examination General Exam: Positive: Alert, No Acute Distress Eye Exam: Positive: Conjunctiva & lids normal; Negative: Sclera icteric ENT Exam: Positive: Atraumatic, Mucous membr. moist/pink, Pharynx Normal Neck Exam: Positive: Supple; Negative: thyromegaly Chest Exam: Positive: Clear to auscultation, Normal air movement Heart Exam: Positive: Rate Normal, Regular Rhythm, Normal S1, Normal S2; Negative: Murmurs, Rubs Telemetry: Positive: No significant arrhythmia Abdomen Exam: Positive: Normal bowel sounds, Soft, Tenderness (diffuse TTP ) Extremity Exam: Negative: Clubbing, Cyanosis, Edema Skin Exam: Positive: Nl turgor and temperature Neuro Exam: Positive: Normal Speech, Cranial Nerves 3-12 NL Psych Exam: Positive: Mood NL, Oriented x 3 Assessment /Plan Assessment Mr. Lopez is a 68 year old male who was admitted to the hospital with a diagnosis of Gastroenteritis. 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 Pt reported to [facility] ED with a 4 day history of N/V/D. He vomited up to 5 times per day prior to reporting to the ED. Pt denied any blood in the stool. He has had very poor intake by mouth secondary to his symptoms. He also has some abdominal dye described as 'cramping' over the last few days. Pt cannot recall/identify any precipitating events except for a tuna sandwich prior to symptom onset. CT ABD & PELVIS W/O CONTRAST IMPRESSION: 1. Colonic diverticulosis without evidence of diverticulitis. 2. No acute inflammatory process or bowel obstruction. 3. Changes of chronic pancreatitis. No acute pancreatic inflammation or mass. Gastroenteritis - Pt tolerating clear fluids, broth - Slowly progress diet starting at lunch - d/c IV fluids as tolerating fluids by mouth. Strict I&Os. - GI panel - pending - Continue Zofran prn YOVANY - Cr of 1.00 in February; 2.21 on admission - Very likely due to severe dehydration from GI loss and continued diuresis; pt reported oliguria until mid morning - Some improvement with IV fluids and improved symptoms - On hold: Ramipril, Furosemide - D/C IV fluids as pt tolerating fluids by mouth - Strict I&O, daily BMP, prn bladder scans - UA was non-contributory Hypotension - Very likely due to severe dehydration from GI loss and continued diuresis, poor PO intake and antihypertensive medications - ACEI and diuretic on hold as above - Reduced Atenolol from 100mg to 50mg qhs with hold parameters due to persistent hypotension CAD - Continue statin and nitroglycerin (prn) - Atenolol reduced to 50mg HLD - Continue statin Plan/VTE VTE Prophylaxis Ordered?: Yes (HSQ) Plan Diet: Advance Activity: Advance Diagnostics: Obtain Cultures (stool - pending ) Anticipated Discharge: Home (24-48 hours ) [facility]O Vital Signs Date Time Temp Pulse Resp B/P (MAP) Pulse Ox O2 Delivery O2 Flow Rate FiO2 04/02/19 06:00 97.3 57 18 93/55 (68) 94 Room Air I&O- Last 24 Hours up to 6 AM 04/02/19 06:00 Intake Total 3610 ml Balance 3610 ml Laboratory Data 24H LABS Laboratory Tests 2 04/01/19 18:46: Immature Granulocyte % (Auto) 0.4, Neutrophils (%) (Auto) 73.5H, Lymphocytes (%) (Auto) 15.6L, Monocytes (%) (Auto) 9.9H, Eosinophils (%) (Auto) 0.3, Basophils (%) (Auto) 0.3, Neutrophils # (Auto) 8.6H, Lymphocytes # (Auto) 1.8, Monocytes # (Auto) 1.2H, Eosinophils # (Auto) 0.0, Basophils # (Auto) 0.0, Nucleated Red Blood Cells % (auto) 0.0, Anion Gap 12, Glomerular Filtration Rate 31.9L, Calcium Level 10.5H, Total Bilirubin 1.1H, Direct Bilirubin 0.2, Aspartate Amino Transf (AST/SGOT) 39H, Alanine Aminotransferase (ALT/SGPT) 43, Alkaline Phosphatase 123H, Total Protein 8.3H, Albumin 4.4, Albumin/Globulin Ratio 1.13, Lipase 138, Influenza Type A (RT-PCR) NEGATIVE, Influenza Type B (RT-PCR) NEGATIVE 04/02/19 07:02: Nucleated Red Blood Cells % (auto) 0.0, Anion Gap 10, Glomerular Filtration Rate 38.4L, Calcium Level 8.1#L, Total Bilirubin 0.9, Aspartate Amino Transf (AST/SGOT) 23, Alanine Aminotransferase (ALT/SGPT) 33, Alkaline Phosphatase 87, Total Protein 5.8#L, Albumin 3.1#L, Albumin/Globulin Ratio 1.15, Magnesium Level 2.0 04/02/19 10:04: Urine Color YELLOW, Urine Appearance CLOUDYH, Urine pH 5.0, Urine Specific [place] 1.015, Urine Protein 2+H, Urine Glucose (Auto)(UA) NEGATIVE, Urine Ketones (Auto) TRACEH, Urine Blood NEGATIVE, Urine Nitrite NEGATIVE, Urine Bilirubin NEGATIVE, Urine Urobilinogen 0.2, Urine Leukocyte Esterase (Auto) NEGATIVE, Urine WBC (Auto) 1, Urine RBC (Auto) 5H, Urine Hyaline Casts (Auto) 0, Urine Bacteria (Auto) NEGATIVE, Urine Squamous Epithelial Cells 0, Urine Mucus (Auto) SMALL, Urine Sperm (Auto) , Urine Random Creatinine 255.0, Urine Random Sodium 23, Urine Random Urea Nitrogen 625 CBC/BMP Laboratory Tests 04/01/19 18:46 04/02/19 07:02 MIKEY LIM PA-C Apr 02, 2019 14:21
[2019-04-03] MEDS: HEPARIN SOD (PORCINE) 5000 UNITS/ML VIAL (J1644 PER 1000UNITS) SC SCH (05:31)
[2019-04-03 05:33] VITALS: BP 96/52
[2019-04-03 06:46] LABS: HEMATOCRIT 41.7 % (42.0-52.0); HEMOGLOBIN 14.3 g/dl (13.5-17.5); MEAN CORPUSCULAR HEMOGLOBIN 32.1 pg (27.0-33.0); MEAN CORPUSCULAR HGB CONC 34.3 g/dl (32.0-36.5); MEAN CORPUSCULAR VOLUME 93.7 fl (80.0-96.0); PLATELET COUNT, AUTOMATED 172 10^3/uL (150-450); RED BLOOD COUNT 4.45 10^6/uL (4.30-6.10); WHITE BLOOD COUNT 7.8 10^3/uL (4.0-10.0)
[2019-04-03 07:14] LABS: BLOOD UREA NITROGEN 22 MG/DL (7-18); CALCIUM LEVEL 8.4 MG/DL (8.8-10.2); CARBON DIOXIDE LEVEL 24 MEQ/L (21-32); CHLORIDE LEVEL 112 MEQ/L (98-107); CREATININE FOR GFR 1.01 MG/DL (0.70-1.30); GLOMERULAR FILTRATION RATE > 60.0 (>49); GLUCOSE, FASTING 90 MG/DL (70-100); MAGNESIUM LEVEL 1.7 MG/DL (1.8-2.4); POTASSIUM SERUM 3.4 MEQ/L (3.5-5.1); SODIUM LEVEL 141 MEQ/L (136-145)
[2019-04-03] MEDS ORDERED: MAG SULF 1GM/100ML (MAG RUN) 1 GM in IV 1 EA IV ONE (08:00)
[2019-04-03] MEDS ORDERED: ATEN50TA2 PO (08:35)
[2019-04-03] MEDS: OMEPRAZOLE 20 MG CAP PO SCH (09:02)
[2019-04-03] MEDS: DULoxetine 30 MG CAP (CYMBALTA) PO SCH (09:02)
[2019-04-03] MEDS ORDERED: POTASSIUM CHLORIDE 10 MEQ SR TABLET PO ONE (11:00)
--- NOTE | 2019-04-03 11:21 | DS.PDOC ---
Discharge Summary General Date of Admission Apr 01, 2019 at 21:27 Date of Discharge 04/03/2019 Discharge Summary PROCEDURES PERFORMED DURING STAY: [None]. ADMITTING DIAGNOSES: 1. Gastroenteritis 2. Acute Kidney Injury 3. Hypotension 4. Coronary Artery Disease 5. Hyperlipidemia 6. Obesity DISCHARGE DIAGNOSES: 1. Gastroenteritis 2. Acute Kidney Injury 3. Hypotension 4. Coronary Artery Disease 5. Hyperlipidemia 6. Obesity COMPLICATIONS/CHIEF COMPLAINT: Luis A, Gastroenteritis. HISTORY OF PRESENT ILLNESS: Patient is a 68-year-old male presents to the emergency room with a 4 day history of nausea vomiting diarrhea. Patient states that 4 days ago he started having nausea and began vomiting. Patient states he vomited about 5 times per day up until earlier today. Patient states he only vomited once today. Patient's been having watery diarrhea. Patient denies having any blood in his diarrhea. Patient says he has not been able to eat and drink much over the last 4 days because of his nausea, vomiting, and diarrhea. Patient also endorses crampy abdominal pain last 4 days. Patient denies eating any abnormal foods. Patient had a tuna fish sandwich the day before he started feeling ill. Patient denies any fevers or any other complaints. Patient does not have any sick contacts. HOSPITAL COURSE: Pt was admitted as noted above. He was given IV fluid bolus 2.5L (inthe ED) and symptomatic treatment with antiemetics. His Lasix and ACEI were held due to dehydration and LUIS A respectively. Due to hypotension, he was further bolused 0.5L following admission. Pt Atenolol was reduced to 50mg with hold parameters due to his hypotension. Pt was medically optimized with the above interventions. He did not have diarrhea or a BM while inpt so his GI panel was not completed. His UA was unremarkable and his leukocytosis (likely reactionary) resolved without abx intervention. Pt was seen sitting up in bed this morning, ready to go home as his Sx had resolved an he was eating without any return of his GI symptoms. He requested a referral to PCP and advised me he had been without his Lasix 'for a while' and abruptly re-started the 80mg dose just before his n/v/d started. We have discussed the need for close f/u outpt to manage his medications and pt agreed and understands. DISCHARGE MEDICATIONS: Please see below. ALLERGIES: Please see below. PHYSICAL EXAMINATION ON DISCHARGE: VITAL SIGNS: Please see below. General Exam: Positive: Alert, No Acute Distress Eye Exam: Positive: Conjunctiva & lids normal; Negative: Sclera icteric ENT Exam: Positive: Atraumatic, Mucous membr. moist/pink, Pharynx Normal Neck Exam: Positive: Supple; Negative: thyromegaly Chest Exam: Positive: Clear to auscultation, Normal air movement Heart Exam: Positive: Rate Normal, Regular Rhythm, Normal S1, Normal S2; Negative: Murmurs, Rubs Telemetry: Positive: No significant arrhythmia Abdomen Exam: Positive: Normal bowel sounds, Soft Negative: Tenderness Extremity Exam: Negative: Clubbing, Cyanosis, Edema Skin Exam: Positive: Nl turgor and temperature Neuro Exam: Positive: Normal Speech, Cranial Nerves 3-12 NL Psych Exam: Positive: Mood NL, Oriented x 3 LABORATORY DATA: Please see below. IMAGING: CT ABD & PELVIS W/O CONTRAST IMPRESSION: 1. Colonic diverticulosis without evidence of diverticulitis. 2. No acute inflammatory process or bowel obstruction. 3. Changes of chronic pancreatitis. No acute pancreatic inflammation or mass. RENAL US IMPRESSION: 1. Multiple renal cysts. 2. No hydronephrosis. 3. Mildly echogenic right kidney suggesting chronic medical renal disease. ACTIVITY: [As tolerated]. DIET: BRAT for 2-3 days then progress as tolerated. DISCHARGE PLAN: D/C home, referral to PCP for outpatient medication management DISPOSITION: Home DISCHARGE INSTRUCTIONS: Follow Up Appt: DR. ATKINS ([facility]) ([phone]) (04/08/2019 @ 220PM) Activity: As Tolerated Diet: BRAT Other Diet: 2-3 days then progress as tolerated Other Instruction: Your Atenolol has been reduced to 50mg per night due to hypotension. Your Furosemide has been held due to dehydration. It is important that you talk to your PCP about these medications and when to resume them. ITEMS TO FOLLOWUP ON ON OUTPATIENT: See above DISCHARGE CONDITION: [Stable]. TIME SPENT ON DISCHARGE: 33 minutes Vital Signs/I&Os Vital Signs Date Time Temp Pulse Resp B/P (MAP) Pulse Ox O2 Delivery O2 Flow Rate FiO2 04/03/19 05:33 97.8 60 19 96/52 (67) 90 Room Air I&O- Last 24 Hours up to 6 AM 04/03/19 06:00 Intake Total 2160 ml Output Total 1685 ml Balance 475 ml Laboratory Data Labs 24H Laboratory Tests 2 04/03/19 06:34: Nucleated Red Blood Cells % (auto) 0.0, Anion Gap 5L, Glomerular Filtration Rate > 60.0, Calcium Level 8.4L, Magnesium Level 1.7L CBC/BMP Laboratory Tests 04/03/19 06:34 Discharge Medications Scheduled Atenolol (Atenolol) 50 Mg Tablet, 50 MG PO QHS Atorvastatin Calcium (Atorvastatin Calcium) 80 Mg Tab, 80 MG PO QHS, (Reported) Duloxetine Hcl (Duloxetine HCl) 30 Mg Cap, 30 MG PO DAILY, (Reported) Omeprazole (Omeprazole) 40 Mg Capsule.dr, 40 MG PO DAILY, (Reported) Potassium Chloride (Klor-Con M10) 10 Meq Tabcr, 10 MEQ PO DAILY, (Reported) Ramipril (Ramipril) 5 Mg Cap, 5 MG PO DAILY, (Reported) Topiramate (Topiramate) 50 Mg Tablet, 50 MG PO QHS, (Reported) Vitamin E (Vitamin E) 400 Unit Capsule, 400 UNIT PO DAILY, (Reported) Scheduled PRN Acetaminophen (Acetaminophen) 500 Mg Tab, 1,000 MG PO Q6H PRN for PAIN, (Reported) Albuterol Sulfate (Proventil Hfa) 108 Mcg/Act Aer, 2 PUFF INH QID PRN for SOB /WHEEZING, (Reported) Nitroglycerin (Nitrostat) 0.4 Mg Subl, 0.4 MG SL PRN PRN for CHEST PAIN, (Reported) Allergies Coded Allergies: citalopram (Verified Allergy, Intermediate, rash, 05/28/18) clindamycin (Verified Allergy, Intermediate, rash, 05/28/18) MIKEY LIM PA-C Apr 03, 2019 11:21
== END 2019-04-03 12:05 | disposition home or self-care (01) | DRG 392 ==
LOC: M ED 17:05 → M ED INP 21:27 → ENRESERVDT 22:25 → ENRESERVTM 22:25 → M MS5PR 04-02 00:09
PROVIDERS: ADMIT Internal Medicine; ATTEND Internal Medicine Nephrology
DX: A08.4 Viral intestinal infection, unspecified (principal); N17.9 Acute kidney failure, unspecified; I10 Essential (primary) hypertension; E78.5 Hyperlipidemia, unspecified; I25.10 Atherosclerotic heart disease of native coronary artery without angina pectoris; I95.9 Hypotension, unspecified; E66.9 Obesity, unspecified; Z90.49 Acquired absence of other specified parts of digestive tract; Z90.2 Acquired absence of lung [part of]; Z95.1 Presence of aortocoronary bypass graft; Z87.891 Personal history of nicotine dependence; E86.0 Dehydration; Z79.899 Other long term (current) drug therapy; Z88.1 Allergy status to other antibiotic agents; Z88.8 Allergy status to other drugs, medicaments and biological substances; Z68.35 Body mass index [BMI] 35.0-35.9, adult

== ENCOUNTER → 2019-04-08 | Outpatient (REF) | payer MEDICARE ==
[~2019-04-08] MED LIST changes: +ATEN50TA2 PO; +OMEP-221 PO; +TOPI50TA9 PO; +VITA400C53 PO
[2019-04-08 19:52] LABS: BASO # 0.1 10^3/uL (0.0-0.2); BASO % 1.1 % (0.0-1.0); EOS # 0.4 10^3/uL (0.0-0.5); EOS % 4.5 % (0.0-3.0); HEMATOCRIT 45.6 % (42.0-52.0); HEMOGLOBIN 15.6 g/dl (13.5-17.5); LYMPH # 2.1 10^3/uL (1.5-5.0); MEAN CORPUSCULAR HEMOGLOBIN 32.4 pg (27.0-33.0); MEAN CORPUSCULAR HGB CONC 34.2 g/dl (32.0-36.5); MEAN CORPUSCULAR VOLUME 94.6 fl (80.0-96.0); MONO # 0.8 10^3/uL (0.0-0.8); MONO % 9.8 % (0.0-5.0); NEUTROPHILS # 4.8 10^3/uL (1.5-8.5); NEUTROPHILS % 58.2 % (36.0-66.0); PLATELET COUNT, AUTOMATED 257 10^3/uL (150-450); RED BLOOD COUNT 4.82 10^6/uL (4.30-6.10); WHITE BLOOD COUNT 8.2 10^3/uL (4.0-10.0)
[2019-04-08 20:22] LABS: ALBUMIN 3.6 GM/DL (3.2-5.2); ALT/SGPT 50 U/L (12-78); BILIRUBIN,TOTAL 0.8 MG/DL (0.2-1.0); BLOOD UREA NITROGEN 13 MG/DL (7-18); CALCIUM LEVEL 9.3 MG/DL (8.8-10.2); CARBON DIOXIDE LEVEL 29 MEQ/L (21-32); CHLORIDE LEVEL 108 MEQ/L (98-107); CREATININE FOR GFR 0.91 MG/DL (0.70-1.30); GLOMERULAR FILTRATION RATE > 60.0 (>49); GLUCOSE, FASTING 102 MG/DL (70-100); POTASSIUM SERUM 4.3 MEQ/L (3.5-5.1); SODIUM LEVEL 142 MEQ/L (136-145); TOTAL PROTEIN 6.7 GM/DL (6.4-8.2)
== END ==
LOC: M LAB REF 09:52
PROVIDERS: ATTEND Physician Assistant
DX: N17.9 Acute kidney failure, unspecified (principal); I50.9 Heart failure, unspecified; I10 Essential (primary) hypertension; I25.10 Atherosclerotic heart disease of native coronary artery without angina pectoris; F41.8 Other specified anxiety disorders

== ENCOUNTER → 2020-01-20 | Outpatient (REF) | payer MEDICARE ==
[~2020-01-20] MED LIST changes: -LACT10SO29 PO; +LACT20EL PO
[2020-01-20 16:23] LABS: HEMATOCRIT 50.3 % (42.0-52.0); HEMOGLOBIN 16.2 g/dl (13.5-17.5); MEAN CORPUSCULAR HEMOGLOBIN 30.7 pg (27.0-33.0); MEAN CORPUSCULAR HGB CONC 32.2 g/dl (32.0-36.5); MEAN CORPUSCULAR VOLUME 95.4 fl (80.0-96.0); PLATELET COUNT, AUTOMATED 237 10^3/uL (150-450); RED BLOOD COUNT 5.27 10^6/uL (4.30-6.10); WHITE BLOOD COUNT 9.2 10^3/uL (4.0-10.0)
[2020-01-20 16:32] LABS: ALBUMIN 3.8 GM/DL (3.2-5.2); ALT/SGPT 29 U/L (12-78); BILIRUBIN,TOTAL 0.8 MG/DL (0.2-1.0); BLOOD UREA NITROGEN 20 MG/DL (7-18); CALCIUM LEVEL 8.6 MG/DL (8.8-10.2); CARBON DIOXIDE LEVEL 30 MEQ/L (21-32); CHLORIDE LEVEL 104 MEQ/L (98-107); CHOLESTEROL LEVEL 148 MG/DL (<200); CREATININE FOR GFR 0.89 MG/DL (0.70-1.30); GLOMERULAR FILTRATION RATE > 60.0 (>49); GLUCOSE, FASTING 102 MG/DL (70-100); HDL CHOLESTEROL 50 MG/DL (>40); LDL CHOLESTEROL 60 MG/DL (<100); NON-HDL-C 98 MG/DL; POTASSIUM SERUM 3.7 MEQ/L (3.5-5.1); SODIUM LEVEL 140 MEQ/L (136-145); TOTAL PROTEIN 6.9 GM/DL (6.4-8.2); TRIGLYCERIDES LEVEL 189 MG/DL (<150)
[2020-01-20 16:34] LABS: TOTAL 25(OH) VITAMIN D 21.4 NG/ML (30.0-100.0)
== END ==
LOC: M LAB REF 15:36
PROVIDERS: ATTEND Physician Assistant
DX: I25.10 Atherosclerotic heart disease of native coronary artery without angina pectoris (principal); I10 Essential (primary) hypertension; Z79.899 Other long term (current) drug therapy

== ENCOUNTER 2020-07-04 18:47 | Emergency (ER) | payer MEDICARE ==
[~2020-07-04] VITALS: Ht 175.3 cm; Wt 126.8 kg
[2020-07-04] MEDS ORDERED: FURO80TA2 PO (19:01)
[2020-07-04] MEDS ORDERED: COMBIVENT RESPIMAT 100-20MCG INHALER 4GM INH ONE (20:05)
--- NOTE | 2020-07-04 20:12 | REP ---
INDICATION: CHEST PAIN COMPARISON: 03/09/2017 TECHNIQUE: Portable AP view of the chest FINDINGS: The mediastinum and cardiac silhouette are stable and within normal limits for portable technique. The lung singh demonstrate diffuse chronic interstitial changes. No focal consolidation, effusion, or pneumothorax. Skeletal structures are intact. IMPRESSION: Chronic appearing changes. No acute cardiopulmonary process appreciated. <Electronically signed by Roney Pederson > 07/04/202008
--- NOTE | 2020-07-04 20:38 | REPVR ---
PROCEDURE INFORMATION: Exam: CT Head Without Contrast Exam date and time: 07/04/2020 8:26 PM Age: 70 years old Clinical indication: Weakness, extremity TECHNIQUE: Imaging protocol: Computed tomography of the head without contrast. Radiation optimization: All CT scans at this facility use at least one of these dose optimization techniques: automated exposure control; mA and/or kV adjustment per patient size (includes targeted exams where dose is matched to clinical indication); or iterative reconstruction. COMPARISON: No relevant prior studies available. FINDINGS: Brain: Mild age-related volume loss. No acute intracranial hemorrhage, midline shift or intracranial mass effect. No cerebral edema. Cerebral ventricles: No hydrocephalus. Paranasal sinuses: Visualized sinuses are unremarkable. No fluid levels. Mastoid air cells: Visualized mastoid air cells are well aerated. Bones/joints: Unremarkable. No acute fracture. Soft tissues: Unremarkable. IMPRESSION: No acute intracranial abnormality. Electronically signed by: John Wills On 07/04/2020 20:37:55 PM
[2020-07-04 20:39] LABS: BASO # 0.1 10^3/uL (0.0-0.2); BASO % 0.8 % (0.0-1.0); EOS # 0.4 10^3/uL (0.0-0.5); EOS % 4.3 % (0.0-3.0); HEMATOCRIT 48.9 % (42.0-52.0); HEMOGLOBIN 16.4 g/dl (13.5-17.5); LYMPH # 2.2 10^3/uL (1.5-5.0); LYMPH % 25.1 % (24.0-44.0); MEAN CORPUSCULAR HEMOGLOBIN 32.3 pg (27.0-33.0); MEAN CORPUSCULAR HGB CONC 33.5 g/dl (32.0-36.5); MEAN CORPUSCULAR VOLUME 96.3 fl (80.0-96.0); MONO # 0.9 10^3/uL (0.0-0.8); MONO % 10.6 % (2.0-8.0); NEUTROPHILS # 5.1 10^3/uL (1.5-8.5); PLATELET COUNT, AUTOMATED 242 10^3/uL (150-450); RED BLOOD COUNT 5.08 10^6/uL (4.30-6.10); WHITE BLOOD COUNT 8.7 10^3/uL (4.0-10.0)
[2020-07-04 21:03] LABS: ALBUMIN 3.8 GM/DL (3.2-5.2); ALT/SGPT 31 U/L (12-78); BILIRUBIN,DIRECT 0.2 MG/DL (0.0-0.2); BILIRUBIN,TOTAL 0.8 MG/DL (0.2-1.0); BLOOD UREA NITROGEN 9 MG/DL (7-18); CALCIUM LEVEL 9.4 MG/DL (8.8-10.2); CARBON DIOXIDE LEVEL 29 MEQ/L (21-32); CHLORIDE LEVEL 107 MEQ/L (98-107); CK-MB VALUE MASS < 1.0 NG/ML (<3.6); CPK CREATINE PHOSPHOKINASE 120 U/L (39-308); CREATININE FOR GFR 0.88 MG/DL (0.70-1.30); FREE T4 0.88 NG/DL (0.76-1.46); GLOMERULAR FILTRATION RATE > 60.0 (>49); GLUCOSE, FASTING 107 MG/DL (70-100); LIPASE 62 U/L (73-393); MB/CK RELATIVE INDEX 0.83 (< OR =4); NT-PRO BNP 68 PG/ML (<125); POTASSIUM SERUM 3.5 MEQ/L (3.5-5.1); SODIUM LEVEL 142 MEQ/L (136-145); TOTAL PROTEIN 7.4 GM/DL (6.4-8.2); TROPONIN I < 0.02 NG/ML (< 0.10)
[2020-07-04] MEDS ORDERED: ATEN50TA2 PO (22:13)
[2020-07-04] MEDS ORDERED: RAMI1CAP24 PO (22:13)
[2020-07-04 22:15] VITALS: BP 123/73
--- NOTE | 2020-07-05 09:34 | ECGEPIP ---
[facility] - ED Test Date: 2020-07-04 Pat Name: ANALY GIRARD Department: Room: - Gender: Male [employer]: HC : 1950 Requested By: Hipolito Gresham Order Number: [id number] Reading MD: Moni Botello Measurements Intervals [place] Rate: 78 P: 12 MI: 146 QRS: 34 QRSD: 108 T: 65 QT: 402 QTc: 458 Interpretive Statements Normal sinus rhythm NSTTW abnormalities possible prior inferior infarct similar 03/09/17 Electronically Signed on 07-05-2020 9:33:49 EDT by Moni Botello
== END 2020-07-04 22:31 | disposition home or self-care (01) ==
LOC: M ED 18:47
DX: I10 Essential (primary) hypertension (principal); I25.10 Atherosclerotic heart disease of native coronary artery without angina pectoris; J44.9 Chronic obstructive pulmonary disease, unspecified; E78.5 Hyperlipidemia, unspecified; F17.200 Nicotine dependence, unspecified, uncomplicated; Z88.1 Allergy status to other antibiotic agents; Z79.899 Other long term (current) drug therapy

== ENCOUNTER → 2020-07-24 | Outpatient (CLI) | payer MEDICARE | LOC: M LABSMTC 09:05 | PROVIDERS: ATTEND Anesthesiology | DX: Z20.828 Contact with and (suspected) exposure to other viral communicable diseases (principal); Z11.59 Encounter for screening for other viral diseases ==

== ENCOUNTER 2020-07-29 09:05 | Day surgery (SDC) | payer MEDICARE ==
[~2020-07-29] VITALS: Ht 175.3 cm; Wt 126.9 kg
[2020-07-29] VITALS (7 sets, daily range): BP systolic 115–127; BP diastolic 72–74; O2SAT 95
[~2020-07-29 09:05] MED LIST changes: +BUPIVACAINE HCL 0.25% 30ML VIAL As Ordered ONE; +KETOROLAC 60MG 2ML VIAL As Ordered ONE; +LIDOCAINE 1% MDV 20ML VIAL SQ PRN; +LR 1,000 ML IV ONE; +SUGAMMADEX SODIUM 500 MG/5 ML VIAL (BRIDION) As Ordered ONE
[2020-07-29] MEDS ORDERED: LIDOCAINE 2% 100MG/5ML SDV (FOR ANES.) As Ordered ONE ×2 (09:12→10:08)
[2020-07-29] MEDS ORDERED: propofoL 200 MG/20 ML VIAL As Ordered ONE ×4 (09:12→18:20)
[2020-07-29] MEDS ORDERED: ROCURONIUM BROMIDE 50 MG/5 ML VIAL As Ordered ONE ×3 (09:12→13:09)
[2020-07-29] MEDS ORDERED: fentaNYL 100 MCG/2 ML INJECTION (J3010) As Ordered ONE (09:12)
[2020-07-29] MEDS ORDERED: MIDAZOLAM INJ 2MG/2ML VIAL (J2250 PER 1MG) As Ordered ONE (09:13)
[2020-07-29] MEDS ORDERED: dexameTHASONE 4 MG/ML 1ML VIAL (J1100 PER 1MG) As Ordered ONE (09:13)
[2020-07-29] MEDS ORDERED: ONDANSETRON 4MG/2ML VIAL As Ordered ONE (09:13)
[2020-07-29] MEDS ORDERED: ALBUTEROL SULFATE 2.5 MG/0.5 ML INH NEB SOLN INH ONE ×2 (10:35→14:45)
[2020-07-29] MEDS ORDERED: ACETAMINOPHEN 1000MG 100ML IV BTL (OFIRMEV) (J0131 PER 10MG) As Ordered ONE (11:26)
[2020-07-29] MEDS ORDERED: SUGAMMADEX SODIUM 500 MG/5 ML VIAL (BRIDION) As Ordered ONE (13:58)
[2020-07-29] MEDS ORDERED: ACETAMINOPHEN TAB 650MG DOSE (2X325MG) PO PRN (14:15)
[2020-07-29] MEDS ORDERED: NORCO, ANEXSIA 5/325MG TABLET (HYDROcodone/ACETAMINOPHEN) PO PRN (14:15)
[2020-07-29] MEDS ORDERED: HYDR-3715 PO (14:20)
[2020-07-29] MEDS ORDERED: ONDANSETRON 4MG/2ML VIAL IV PRN ×2 (14:25→18:00)
[2020-07-29] MEDS ORDERED: LR 1,000 ML IV SCH (14:25)
[2020-07-29] MEDS ORDERED: fentaNYL 100 MCG/2 ML INJECTION (J3010) IV PRN (14:25)
[2020-07-29] MEDS: PERCOCET 5MG/325MG TAB PO PRN ×2 (14:38→16:10)
[2020-07-29] MEDS ORDERED: NITROGLYCERIN 0.4 MG SUBL TABLET SL PRN (16:35)
[2020-07-29] MEDS ORDERED: ALBUTEROL 90 MCG/ACT 8GM HFA INHALER INH PRN (16:35)
[2020-07-29] MEDS ORDERED: oxyCODONE 5MG TAB PO PRN (17:00)
[2020-07-29] MEDS ORDERED: ATORVASTATIN 20 MG TAB PO SCH (21:00)
[2020-07-29] MEDS ORDERED: TOPIRAMATE (TopAMAX) 25 MG TAB PO SCH (21:00)
[2020-07-29] MEDS ORDERED: atenoloL 50 MG TAB PO SCH (21:00)
[2020-07-30 02:00] VITALS: BP 132/75
[2020-07-30 06:00] VITALS: BP 121/52
[2020-07-30] MEDS ORDERED: POTASSIUM CHLORIDE 10 MEQ SR TABLET PO SCH (09:00)
[2020-07-30] MEDS ORDERED: ramipriL 5 MG CAP PO SCH (09:00)
[2020-07-30] MEDS ORDERED: FUROSEMIDE 80 MG TAB PO SCH (09:00)
[2020-07-30] MEDS ORDERED: DULoxetine 30 MG CAP (CYMBALTA) PO SCH (09:00)
[2020-07-30 10:00] VITALS: BP 140/79
== END 2020-07-30 12:45 | disposition home or self-care (01) ==
LOC: M SDC 09:05 → M MS5PR 16:05 → M SDC 07-30 12:45
PROVIDERS: ATTEND Surgery
DX: K40.91 Unilateral inguinal hernia, without obstruction or gangrene, recurrent (principal); I25.10 Atherosclerotic heart disease of native coronary artery without angina pectoris; I50.9 Heart failure, unspecified; I25.2 Old myocardial infarction; F41.8 Other specified anxiety disorders; J44.9 Chronic obstructive pulmonary disease, unspecified; Z95.1 Presence of aortocoronary bypass graft; Z79.82 Long term (current) use of aspirin; K21.9 Gastro-esophageal reflux disease without esophagitis; K44.9 Diaphragmatic hernia without obstruction or gangrene; G47.33 Obstructive sleep apnea (adult) (pediatric); E66.9 Obesity, unspecified; Z88.1 Allergy status to other antibiotic agents; Z88.8 Allergy status to other drugs, medicaments and biological substances; I10 Essential (primary) hypertension
CPT/HCPCS: 49651; C1781; J0131; J1100; J1885; J2250; J2405; J3010; S2900

== ENCOUNTER → 2021-01-31 | Outpatient (CLI) | payer MEDICARE ==
[~2021-01-31] MED LIST changes: +ALBU83IN INH; +ASPI81TA26 PO; -BUPIVACAINE HCL 0.25% 30ML VIAL As Ordered ONE; -KETOROLAC 60MG 2ML VIAL As Ordered ONE; -KLOR10TA76 PO; -LIDOCAINE 1% MDV 20ML VIAL SQ PRN; -LR 1,000 ML IV ONE; -OMEP-221 PO; +OMEP40CA5 PO; +POTA-136 PO; -SUGAMMADEX SODIUM 500 MG/5 ML VIAL (BRIDION) As Ordered ONE; +VITMTA PO
== END ==
LOC: M RAD 15:12
PROVIDERS: ATTEND Orthopaedic Surgery
DX: M25.511 Pain in right shoulder (principal)

== ENCOUNTER → 2021-03-03 | Outpatient (CLI) | payer MEDICARE ==
[~2021-03-03] MED LIST changes: -ALBU83IN INH; -ASPI81TA26 PO; -VITMTA PO
== END ==
LOC: M LABSMTC 10:23
PROVIDERS: ATTEND Anesthesiology
DX: Z01.818 Encounter for other preprocedural examination (principal); Z11.52 Encounter for screening for COVID-19

== ENCOUNTER → 2022-03-21 | Outpatient (CLI) | payer MEDICARE ==
[~2022-03-21] MED LIST changes: +ALBU2.5V10 INH; +ALBU6.7H6 INH; +ASPI81TA26 PO; -PROV108A INH; +VITMTA PO
== END ==
LOC: M WUC 13:00
PROVIDERS: ATTEND Physician Assistant
DX: R05.9 Cough, unspecified (principal); M54.50 Low back pain, unspecified; M25.552 Pain in left hip

== ENCOUNTER → 2022-03-27 | Outpatient (REF) | payer MEDICARE ==
[2022-03-27 18:52] LABS: LIPASE 31 U/L (12-53)
[2022-03-27 18:53] LABS: AMYLASE 49 U/L (30-118)
[2022-03-27 18:54] LABS: ALBUMIN 3.5 G/DL (3.2-5.2); ALKALINE PHOSPHATASE 85 U/L (46-116); ALT/SGPT 28 U/L (7.0-40); AST/SGOT 20 U/L (<34); BILIRUBIN,TOTAL 0.9 MG/DL (0.3-1.2); BLOOD UREA NITROGEN 18 MG/DL (9-23); CALCIUM LEVEL 9.3 MG/DL (8.3-10.6); CARBON DIOXIDE LEVEL 29 MMOL/L (20-31); CHLORIDE LEVEL 109 MMOL/L (98-107); CHOLESTEROL LEVEL 138 MG/DL (<200); CHOLESTEROL RISK RATIO 3.17 (<5); CREATININE FOR GFR 0.81 MG/DL (0.70-1.30); GLOMERULAR FILTRATION RATE > 60.0 (>49); GLUCOSE, FASTING 115 MG/DL (74-106); HDL CHOLESTEROL 43.5 MG/DL (>40); LDL CHOLESTEROL 57.9 MG/DL (<100); NON-HDL-C 95 MG/DL; POTASSIUM SERUM 4.8 MMOL/L (3.5-5.1); SODIUM LEVEL 143 MMOL/L (136-145); TOTAL PROTEIN 6.4 G/DL (5.7-8.2); TRIGLYCERIDES LEVEL 183 MG/DL (<150)
[2022-03-27 18:56] LABS: THYROID STIMULATING HORMONE 3.151 uIU/ML (0.55-4.78)
[2022-03-27 19:01] LABS: HEMATOCRIT 48.4 % (42.0-52.0); HEMOGLOBIN 15.9 g/dl (13.5-17.5); MEAN CORPUSCULAR HEMOGLOBIN 32.7 pg (27.0-33.0); MEAN CORPUSCULAR HGB CONC 32.9 g/dl (32.0-36.5); MEAN CORPUSCULAR VOLUME 99.6 fl (80.0-96.0); PLATELET COUNT, AUTOMATED 268 10^3/uL (150-450); RED BLOOD COUNT 4.86 10^6/uL (4.30-6.10); WHITE BLOOD COUNT 9.3 10^3/uL (4.0-10.0)
== END ==
LOC: M LAB REF 16:09
PROVIDERS: ATTEND Physician Assistant
DX: I10 Essential (primary) hypertension (principal); K40.91 Unilateral inguinal hernia, without obstruction or gangrene, recurrent; R10.13 Epigastric pain

== ENCOUNTER → 2022-04-12 | Outpatient (CLI) | payer MEDICARE ==
[~2022-04-12] MED LIST changes: +GASTROGRAFIN SOLUTION 30ML As Ordered ONE; +ISOVUE-370 76% 100ML VIAL As Ordered ONE; +TOPI-254 PO; -TOPI50TA9 PO
== END ==
LOC: M RAD 13:00
PROVIDERS: ATTEND Physician Assistant
DX: R10.13 Epigastric pain (principal); N28.1 Cyst of kidney, acquired; Z90.49 Acquired absence of other specified parts of digestive tract
CPT/HCPCS: 74177; Q9963; Q9967

== ENCOUNTER → 2022-06-01 | Outpatient (CLI) | payer MEDICARE ==
[~2022-06-01] MED LIST changes: -GASTROGRAFIN SOLUTION 30ML As Ordered ONE; -ISOVUE-370 76% 100ML VIAL As Ordered ONE
== END ==
LOC: M RAD 14:23
PROVIDERS: ATTEND Physician Assistant
DX: Z12.2 Encounter for screening for malignant neoplasm of respiratory organs (principal); F17.210 Nicotine dependence, cigarettes, uncomplicated; R91.8 Other nonspecific abnormal finding of lung field

== ENCOUNTER → 2023-12-05 | Outpatient (REF) | payer MEDICARE ==
[~2023-12-05] MED LIST changes: -RAMI1CAP24 PO; +RAMI5CAP60 PO; +TOPI-21 PO; -TOPI-254 PO
[2023-12-05 19:16] LABS: ALBUMIN 3.2 G/DL (3.2-5.2); ALKALINE PHOSPHATASE 96 U/L (40-129); ALT/SGPT 21 U/L (7.0-40); AST/SGOT 12 U/L (<34); BILIRUBIN,TOTAL 0.6 MG/DL (0.3-1.2); BLOOD UREA NITROGEN 14 MG/DL (9-23); CARBON DIOXIDE LEVEL 25 MMOL/L (20-31); CHLORIDE LEVEL 112 MMOL/L (98-107); CHOLESTEROL LEVEL 215 MG/DL (<200); CHOLESTEROL RISK RATIO 4.57 (<5); CREATININE FOR GFR 0.74 MG/DL (0.70-1.30); GLOMERULAR FILTRATION RATE > 60.0 (>42); GLUCOSE, FASTING 100 MG/DL (74-106); LDL CHOLESTEROL 131.2 MG/DL (<100); POTASSIUM SERUM 4.4 MMOL/L (3.5-5.1); SODIUM LEVEL 142 MMOL/L (136-145); TOTAL PROTEIN 6.4 G/DL (5.7-8.2); TRIGLYCERIDES LEVEL 184 MG/DL (<150)
[2023-12-05 19:26] LABS: BASO # 0.1 10^3/uL (0.0-0.2); BASO % 0.8 % (0.0-1.0); EOS # 0.4 10^3/uL (0.0-0.5); EOS % 4.5 % (0.0-3.0); HEMATOCRIT 48.4 % (42.0-52.0); LYMPH # 1.7 10^3/uL (1.5-5.0); LYMPH % 18.5 % (24.0-44.0); MEAN CORPUSCULAR HEMOGLOBIN 32.5 pg (27.0-33.0); MEAN CORPUSCULAR HGB CONC 33.1 g/dl (32.0-36.5); MEAN CORPUSCULAR VOLUME 98.2 fl (80.0-96.0); MONO # 0.9 10^3/uL (0.0-0.8); MONO % 9.2 % (2.0-8.0); NEUTROPHILS # 6.2 10^3/uL (1.5-8.5); NEUTROPHILS % 66.4 % (36.0-66.0); RED BLOOD COUNT 4.93 10^6/uL (4.30-6.10); WHITE BLOOD COUNT 9.3 10^3/uL (4.0-10.0)
[2023-12-05 20:07] LABS: HEMOGLOBIN A1c 5.9 % (4.0-6.0)
== END ==
LOC: M LAB REF 16:25
PROVIDERS: ATTEND Physician Assistant
DX: R73.01 Impaired fasting glucose (principal); J43.9 Emphysema, unspecified; I25.10 Atherosclerotic heart disease of native coronary artery without angina pectoris

== ENCOUNTER → 2024-04-30 | Outpatient (REF) | payer MEDICARE ==
[~2024-04-30] MED LIST changes: -CYCL5TAB PO; +CYCL5TAB4 PO
== END ==
LOC: M LAB REF 17:56
PROVIDERS: ATTEND Physician Assistant
DX: L82.0 Inflamed seborrheic keratosis (principal)

== ENCOUNTER → 2024-06-03 | Outpatient (CLI) | payer MEDICARE ==
[~2024-06-03] MED LIST changes: +TOPI-14 PO; -TOPI200T7 PO
== END ==
LOC: M RAD 13:54
PROVIDERS: ATTEND Physician Assistant
DX: Z12.2 Encounter for screening for malignant neoplasm of respiratory organs (principal); F17.210 Nicotine dependence, cigarettes, uncomplicated